=== PATIENT | male | born 1990 | race Caucasian/White ===

== ENCOUNTER 2024-11-18 23:34 | Emergency (ER) | payer SELFPAY ==
[~2024-11-18] VITALS: Ht 175.3 cm; Wt 98.0 kg
[2024-11-18 23:43] VITALS: O2SAT 100
[2024-11-19 00:15] VITALS: TEMP 98.9; O2SAT 97
[2024-11-19 00:22] VITALS: BP 162/96; PULSE 119; RESP 15
[2024-11-19] MEDS: ONDANSETRON HCL 4MG/2ML INJ IV STA (00:22)
[2024-11-19] MEDS: MORPHINE SULFATE 4 MG/ML INJ (FOR IV/IM USE) IV STA (00:22)
[2024-11-19] MEDS: SODIUM CHLORIDE 0.9% 1,000 ML IV ONE (00:30)
[2024-11-19 00:47] LABS: BASOPHILS % 0.3 % (0.0-2.0); EOSINOPHILS % 0.3 % (0.0-5.0); HEMATOCRIT. 53.3 % (42.0-52.0); HEMOGLOBIN. 17.9 g/dL (14.0-18.0); LYMPHOCYTES % 9.2 % (20.0-50.0); MEAN CORPUSCULAR HEMOGLOBIN 29.1 pg (28.0-32.0); MEAN CORPUSCULAR HGB CONC 33.5 g/dL (31.0-37.0); MEAN CORPUSCULAR VOLUME 86.9 fL (80.0-94.0); MEAN PLATELET VOLUME 9.8 fl (7.4-10.4); MONOCYTES % 4.5 % (2.0-8.0); NEUTROPHILS % 85.7 % (40.0-76.0); PLATELET 259 x1000/uL (130-400); RED BLOOD CELL COUNT 6.14 mill/uL (4.7-6.1); RED CELL DISTRIBUTION WIDTH 14.2 % (11.6-14.6); WHITE BLOOD COUNT 10.2 x1000/uL (4.5-11.0)
[2024-11-19 00:53] LABS: CHLORIDE 107 mEq/L (98-107); POTASSIUM 4.1 mEq/L (3.5-5.1); SODIUM 139 mEq/L (136-145)
[2024-11-19 00:54] LABS: CARBON DIOXIDE 19 mEq/L (21-32)
[2024-11-19 00:55] LABS: CALCIUM 9.5 mg/dL (8.7-10.4)
[2024-11-19 00:59] LABS: CREATININE 1.1 mg/dL (0.6-1.3); GLUCOSE 135 mg/dL (70-105); UREA NITROGEN BLOOD 13 mg/dL (9-23)
[2024-11-19 01:01] LABS: ALANINE AMINOTRANSFERASE 35 IU/L (10-49); ALBUMIN 4.8 g/dL (3.2-4.8); ASPARTATE AMINOTRANSFERASE 22 IU/L (<34)
[2024-11-19 01:02] LABS: BILIRUBIN DIRECT 0.2 mg/dL (<=3.0); BILIRUBIN TOTAL 0.9 mg/dL (0.1-1.0); PROTEIN TOTAL 8.4 g/dL (6.0-8.3)
[2024-11-19] MEDS ORDERED: ONDA4TAB50 MT (01:59)
== END 2024-11-19 02:13 | disposition home or self-care (01) ==
LOC: ER 23:34
DX: R10.10 Upper abdominal pain, unspecified (principal); Z98.890 Other specified postprocedural states
CPT/HCPCS: 99284; 80076; 80048; 83690; 85025; 36415; 71045; J7030